=== PATIENT | female | born 1980 | race African-American/Black ===

== ENCOUNTER 2017-06-28 19:03 | Emergency (ER) | payer SELFPAY ==
--- NOTE | 2017-06-28 19:48 | ER Document Report ---
HPI - HPI Pain Level: 5 Notes: Patient is a 36-year-old female who presents the ED complaining of right scapular pain/thoracic back pain status post injury while moving a heavy weight yesterday. She states that she felt a pull in her back and has had pain ever since. Patient states that there is worsening pain when she puts her right arm through range of motion in that area. The pain does not radiate and is described as an ache and occasionally sharp pain. Patient is still able to perform her ADLs without any problems. Denies any headache, fever, head injury , neck pain, URI, sore throat, chest pain, palpitations, syncope, cough, shortness of breath, wheeze, dyspnea, abdominal pain, nausea/vomiting/diarrhea, urinary retention, dysuria, hematuria, loss of control of bowel or bladder, numbness/tingling, saddle anesthesia, muscle paralysis/weakness, or rash. Patient also states that she is on her period, which has been regular, but states that it has been a little bit tax intern than usual. Patient does not take any control pills, nor is she on any control. Patient denies any vaginal odor, bleeding, abdominal pain, pelvic pain. Patient is currently on day 3 of her menstrual period. No other associated concerns or complaints. - ROS Notes: REVIEW OF SYSTEMS: CONSTITUTIONAL : Denies fever, chills, or sweats. Denies recent illness. EENT: Denies eye, ear, throat, or mouth pain or symptoms. Denies nasal or sinus congestion or discharge. Denies throat, tongue, or mouth swelling or difficulty swallowing. CARDIOVASCULAR: Denies chest pain. Denies palpitations or racing or irregular heart beat. Denies ankle edema. RESPIRATORY: Denies cough, cold, or chest congestion. Denies shortness of breath, difficulty breathing, or wheezing. GASTROINTESTINAL: Denies abdominal pain or distention. Denies nausea, vomiting , or diarrhea. Denies blood in vomitus, stools, or per rectum. Denies black, tarry stools. Denies constipation. GENITOURINARY: Denies difficulty urinating, painful urination, burning, frequency, blood in urine, or discharge. FEMALE GENITOURINARY: see hpi MUSCULOSKELETAL: see hpi SKIN: Denies rash, lesions or sores. NEUROLOGICAL: Denies confusion or altered mental status. Denies passing out or loss of consciousness. Denies dizziness or lightheadedness. Denies headache. Denies weakness or paralysis or loss of use of either side. Denies problems with gait or speech. Denies sensory loss, numbness, or tingling. ALL OTHER SYSTEMS REVIEWED AND NEGATIVE. Dictation was performed using [employer] voice recognition software - DERM Skin Color: Normal Past Medical History - Social History Smoking Status: Current Every Day Smoker Family History: Reviewed & Not Pertinent Patient has suicidal ideation: No Patient has homicidal ideation: No Renal/ Medical History: Denies: Hx Peritoneal Dialysis Vertical Provider Document - CONSTITUTIONAL Agree With Documented VS: Yes Notes: PHYSICAL EXAMINATION: GENERAL: Well-appearing, well-nourished and in no acute distress. NECK: Normal range of motion, supple without lymphadenopathy. No rigidity/ meningismus. LUNGS: Breath sounds clear to auscultation bilaterally and equal. No wheezes rales or rhonchi. HEART: Regular rate and rhythm without murmurs, rubs, gallops. ABDOMEN: Soft, nontender, nondistended abdomen. No guarding, no rebound. No masses appreciated. Normal bowel sounds present. No CVA tenderness bilaterally. No pulsatile mass. Musculoskeletal: Ext b/l: FROM to passive/active. Strength 5+/5. No focal deficits noted. Back: No ecchymosis, abrasion, laceration, or obvious deformity/step-off noted. FROM to passive/active. Strength 5+/5. No vertebral point tenderness. + mild tenderness to the rt T-paraspinal mm with trigger points noted. + mild muscle spasming. No other bony tenderness. SLR neg b/l. Extremities: No cyanosis, clubbing, or edema b/l. Peripheral pulses 2+. Capillary refill less than 3 seconds. NEUROLOGICAL: Normal speech, normal gait. Normal sensory, motor exams PSYCH: Normal mood, normal affect. SKIN: Warm, Dry, normal turgor, no rashes or lesions noted. - INFECTION CONTROL TRAVEL OUTSIDE OF THE [place] IN LAST 30 DAYS: No - RESPIRATORY O2 Sat by Pulse Oximetry: 99 Course - Re-evaluation Re-evalutation: 06/28/17 21:05 Patient is an afebrile, well-hydrated, 36-year-old female who presents the ED with right thoracic back pain, suspect inflammatory with muscle spasming, and typical menstrual bleeding without any pain or discomfort. Vitals are stable. PE otherwise unremarkable for any focal neurological deficits. Urine was negative. I will send her home with a prescription for naproxen, Voltaren gel, and baclofen. Conservative measures otherwise for symptoms. Low suspicion for any meningitis, fracture, expanding/ruptured AAA, cauda equina syndrome, epidural mass lesion/abscess, herniated disc causing severe spinal stenosis, ectopic , ovarian torsion, appendicitis, ruptured diverticulitis, sepsis, or other systemic infection at this time. Patient is aware that his condition can change from initial presentation and that he needs monitor symptoms closely for any acute changes. Reviewed case with Dr. Reeder about the [facility] concern. We are in agreement with the urine and referring to [facility] with strict return precautions. No need for further evaluation or work up for asymptomatic menstrual bleeding that is on a regular cycle. Recheck/establish with PCM in 2-3 days. Schedule an appointment with the MANAGER [facility]. Schedule an appointment with the health department if you wish to have STD or other testing. Return to the ED with any worsening/ concerning symptoms otherwise as reviewed in discharge. Patient is in agreement. - Vital Signs Vital signs: Temp Pulse Resp BP Pulse Ox 99.1 F 77 16 128/84 H 99 06/28/17 19:08 06/28/17 19:08 06/28/17 19:08 06/28/17 19:08 06/28/17 19:08 Discharge - Discharge Clinical Impression: Thoracic back pain Qualifiers: Chronicity: acute Back pain laterality: right Qualified Code(s): M54.6 - Pain in thoracic spine Condition: Stable Disposition: HOME, SELF-CARE Instructions: Muscle Relaxers ([facility]), Upper Back Strain ([facility]) Additional Instructions: Rest, Ice, Compression, Elevation Tylenol/ibuprofen as needed Light stretches daily Strength exercises as able Moist heat and massage may help F/u-establish with a PCM in 2-3 days for a recheck Check with the health department if you would like STD testing otherwise Consider consult(s) with Orthopedics/physical therapy for ongoing/worsening symptoms Return to the ED with any worsening symptoms and/or development of fever, headache, chest pain, palpitations, syncope, shortness of breath, trouble breathing, abdominal pain, n/v/d, blood in stool/urine, loss of control of bowel /bladder, urinary retention, muscle weakness/paralysis, saddle anesthesia, numbness/tingling, or other worsening symptoms that are concerning to you. Prescriptions: Baclofen [Baclofen 10 mg Tablet] 5 mg PO BID PRN #10 tablet PRN Reason: Diclofenac Sodium [Voltaren] 4 gm TP QID PRN #100 gel..gm. PRN Reason: Naproxen 500 mg PO BID PRN #60 tablet PRN Reason: Forms: Elevated Blood Pressure, Smoking Cessation Education Referrals: [facility] [Provider Group] - Follow up as needed [facility] [Provider Group] - Follow up as needed [facility] [Provider Group] - [facility] up as [facility] [NO LOCAL MD] - Follow up in 3-5 days [facility] [Provider Group] - 07/01/17
[2017-06-28 21:03] VITALS: BP 121/81
== END 2017-06-28 21:12 | disposition home or self-care (01) ==
LOC: ER 19:03
DX: M54.6 Pain in thoracic spine (principal); M62.830 Muscle spasm of back; X50.0XXA Overexertion from strenuous movement or load, initial encounter; Y93.89 Activity, other specified; Y92.009 Unspecified place in unspecified non-institutional (private) residence as the place of occurrence of the external cause; F17.200 Nicotine dependence, unspecified, uncomplicated; Z32.02 Encounter for pregnancy test, result negative
CPT/HCPCS: 81025; 99283

== ENCOUNTER 2018-01-16 14:33 | Emergency (ER) | payer SELFPAY ==
[2018-01-16] MEDS ORDERED: METHYLPREDNISOLONE INJ 125 MG/2 ML SDV IM ONE (15:04)
--- NOTE | 2018-01-16 15:10 | ER Document Report ---
HPI - HPI Pain Level: 5 Notes: Patient is a 37-year-old female no significant past medical history presents to the ED complaining of a generalized rash 1 week. Patient states that she has had this intermittent rash since June. Patient states that she has itching associated with it. Patient states that the rash will completely go away at times. She has been using [id number] creams with minimal relief. Patient has not been taking any p.o. medications for her symptoms. Patient states that she did move to [place] from [place] and notices recurrence symptoms when she gets out of the shower. She still eating and drinking without any difficulties. She is urinating normally and having normal bowel movements. Patient denies any other travel, new detergents, chemicals, soaps, or insect bites. Denies any other recent illness. Denies any headache, fever, neck pain, URI, sore throat, chest pain, palpitations, syncope, cough, shortness of breath, wheeze, dyspnea, abdominal pain, nausea/vomiting/diarrhea, urinary retention, dysuria, hematuria, loss of control of bowel or bladder, numbness/tingling, saddle anesthesia, muscle paralysis/weakness. - ROS Systems Reviewed and Negative: Yes All other systems reviewed and negative Past Medical History - Social History Smoking Status: Never Smoker Family History: Reviewed & Not Pertinent Pulmonary Medical History: Reports: Hx Asthma Renal/ Medical History: Denies: Hx Peritoneal Dialysis Vertical Provider Document - CONSTITUTIONAL Agree With Documented VS: Yes Notes: PHYSICAL EXAMINATION: GENERAL: Well-appearing, well-nourished and in no acute distress. A&Ox4. Answers questions appropriately. HEAD: Atraumatic, normocephalic. EYES: Pupils equal round and reactive to light, extraocular movements intact, sclera anicteric, conjunctiva are normal. ENT: Nares patent and without discharge. oropharynx clear without exudates. No tonsilar hypertrophy or erythema. Moist mucous membranes. NECK: Normal range of motion, supple without lymphadenopathy LUNGS: Breath sounds clear to auscultation bilaterally and equal. No wheezes rales or rhonchi. HEART: Regular rate and rhythm without murmurs, rubs, gallops. ABDOMEN: Soft, nontender, nondistended abdomen. No guarding, no rebound. No masses appreciated. Normal bowel sounds present. No CVA tenderness bilaterally. Musculoskeletal: FROM to passive/active. Strength 5+/5. Extremities: No cyanosis, clubbing, or edema b/l. Peripheral pulses 2+. Capillary refill less than 3 seconds. NEUROLOGICAL: Cranial nerves grossly intact. Normal speech, normal gait. Normal sensory, motor exams PSYCH: Normal mood, normal affect. SKIN: generalized (trunk/arms/legs) maculopapular rash to the skin. No scabs, burrows, abscess, streaks, or purulence. - INFECTION CONTROL TRAVEL OUTSIDE OF THE U.S. IN LAST 30 DAYS: No - RESPIRATORY O2 Sat by Pulse Oximetry: 99 Course - Re-evaluation Re-evalutation: 01/16/18 15:10 Patient is an afebrile, well-hydrated, 37-year-old female who presents to the ED with a generalized rash skin eruption, suspect dermatitis. Vitals are stable. PE is otherwise unremarkable. No labs or imaging warranted at this time based on H&P. Low suspicion for any excising fasciitis, cellulitis, sepsis , or other systemic emergent condition at this time. Solu-Medrol given IM today. I will send her home with a prescription for and prednisone taper. Conservative measures for symptoms otherwise with close monitoring and documentation of any possible triggers. Recheck with your PCM in 3-5 days. Consider consult with a gps field data collector. Return to the ED with any worsening/ concerning symptoms otherwise as reviewed discharge. Patient is in agreement. - Vital Signs Vital signs: Temp Pulse Resp BP Pulse Ox 98.6 F 78 16 118/75 99 01/16/18 14:44 01/16/18 14:44 01/16/18 14:44 01/16/18 14:44 01/16/18 14:44 Discharge - Discharge Clinical Impression: Rash and nonspecific skin eruption Condition: Stable Disposition: HOME, SELF-CARE Additional Instructions: Keep the skin clean Moisturizers that have no odor or other additives Wash with mild soap and water Tylenol/ibuprofen if needed Take medication as directed Monitor for any worsening symptoms Recheck with your PCM in 3-5 days Consider consult with Dermatology for ongoing/worsening symptoms Return to the ED with any worsening symptoms and/or development of fever, headache, chest pain, palpitations, syncope, shortness of breath, trouble breathing, abdominal pain, n/v/d, abscess, purulent discharge, red streaks, worsening swelling, or other worsening symptoms that are concerning to you. Prescriptions: Prednisone [Deltasone 10 mg Tablet] 10 mg PO ASDIR PRN #21 tablet PRN Reason: Forms: Smoking Cessation Education Referrals: RAEANN BORGES DO [ACTIVE STAFF] - Follow up as needed
[2018-01-16 15:51] VITALS: BP 117/71
== END 2018-01-16 15:49 | disposition home or self-care (01) ==
LOC: ER 14:33
DX: R21 Rash and other nonspecific skin eruption (principal); L29.8 Other pruritus; J45.909 Unspecified asthma, uncomplicated
CPT/HCPCS: 99282; 96372; J2930

== ENCOUNTER 2018-02-10 12:47 | Inpatient (IN) | payer SELFPAY ==
[2018-02-10] MEDS ORDERED: ONDANSETRON 4 MG TAB.RAPDIS PO ONE (13:28)
--- NOTE | 2018-02-10 13:29 | ER Document Report ---
ED Medical Screen (RME) - General Chief Complaint: Vomiting Stated Complaint: VOMITING Time Seen by Provider: 02/10/18 13:28 Notes: Patient complains of chest pain shortness of breath abdominal pain nausea vomiting and frequent urination. TRAVEL OUTSIDE OF THE [place] IN LAST 30 DAYS: No - Related Data Allergies/Adverse Reactions: latex Allergy (Verified 01/16/18 14:57) Penicillins Allergy (Verified 01/16/18 14:57) Past Medical History - Social History Chew tobacco use (# tins/day): No Frequency of alcohol use: Occasional Drug Abuse: None Pulmonary Medical History: Reports: Hx Asthma Renal/ Medical History: Denies: Hx Peritoneal Dialysis Physical Exam - Vital signs Vitals: Temp Pulse Resp BP Pulse Ox 98.4 F 87 16 107/82 99 02/10/18 13:11 02/10/18 13:11 02/10/18 13:11 02/10/18 13:11 02/10/18 13:11 Course - Vital Signs Vital signs: Temp Pulse Resp BP Pulse Ox 98.4 F 87 16 107/82 99 02/10/18 13:11 02/10/18 13:11 02/10/18 13:11 02/10/18 13:11 02/10/18 13:11
[2018-02-10 14:02] LABS: ABSOLUTE BASOPHILS # (AUTO) 0.1 10^3/uL (0.0-0.2); ABSOLUTE EOSINOPHILS # (AUTO) 0.2 10^3/uL (0.0-0.6); ABSOLUTE LYMPHOCYTES (AUTO) 2.6 10^3/uL (0.5-4.7); ABSOLUTE MONOCYTES (AUTO) 0.2 10^3/uL (0.1-1.4); ABSOLUTE NEUT (AUTO) 4.8 10^3/uL (1.7-8.2); BASOPHILS % (AUTO) 1.1 % (0-2); EOSINOPHILS % (AUTO) 2.1 % (0-6); HEMATOCRIT 44.7 % (36.0-47.0); HEMOGLOBIN 15.7 g/dL (12.0-15.5); LYMPHOCYTES % (AUTO) 33.2 % (13-45); MEAN CORPUSCULAR HEMOGLOBIN 32.7 pg (27.0-33.4); MEAN CORPUSCULAR HGB CONC 35.2 g/dL (32.0-36.0); MEAN CORPUSCULAR VOLUME 93 fl (80-97); MONOCYTES % (AUTO) 2.8 % (3-13); PLATELET COUNT 301 10^3/uL (150-450); RED BLOOD COUNT 4.81 10^6/uL (3.72-5.28); RED CELL DISTRIBUTION WIDTH 12.7 % (11.5-14.0); SEGMENTED NEUTROPHILS % (AUTO) 60.8 % (42-78); TOTAL CELLS COUNTED % (AUTO) 100 %
[2018-02-10 14:08] LABS: APPEARANCE,URINE CLEAR; BILIRUBIN,URINE NEGATIVE (NEGATIVE); COLOR,URINE YELLOW; GLUCOSE, URINE >=500 mg/dL (NEGATIVE); KETONES,URINE 80 mg/dL (NEGATIVE); LEUKOCYTE ESTERASE,URINE NEGATIVE (NEGATIVE); NITRITE,URINE NEGATIVE (NEGATIVE); PROTEIN,URINE 100 mg/dL (NEGATIVE); URINE SPECIFIC GRAVITY 1.025; UROBILINOGEN,URINE NEGATIVE mg/dL (<2.0)
[2018-02-10 14:20] LABS: ALANINE AMINOTRANSFERASE 30 U/L (9-52); ALBUMIN 4.9 g/dL (3.5-5.0); ALKALINE PHOSPHATASE 167 U/L (38-126); ASPARTATE AMINO TRANSFERASE 23 U/L (14-36); BILIRUBIN,DIRECT 0.5 mg/dL (0.0-0.4); BILIRUBIN,TOTAL 0.7 mg/dL (0.2-1.3); BLOOD UREA NITROGEN 10 mg/dL (7-20); CALCIUM 9.5 mg/dL (8.4-10.2); CHLORIDE 104 mmol/L (98-107); GLUCOSE 290 mg/dL (75-110); LIPASE 115.5 U/L (23-300); POTASSIUM 4.2 mmol/L (3.6-5.0)
[2018-02-10 14:25] LABS: SODIUM 138.1 mmol/L (137-145)
[2018-02-10 14:27] LABS: ANION GAP 24 (5-19)
[2018-02-10 14:28] LABS: CARBON DIOXIDE 10 mmol/L (22-30)
[2018-02-10] MEDS ORDERED: NORMAL SALINE 1000 ML 1,000 ML IV ONE ×2 (14:33→15:02)
[2018-02-10] MEDS ORDERED: INSULIN REG, HUMAN 100 UNIT/ML 3 ML VIAL (PYX) SUBCUT ONE (14:54)
--- NOTE | 2018-02-10 15:04 | ER Document Report ---
ED General - General Chief Complaint: Vomiting Stated Complaint: VOMITING Time Seen by Provider: 02/10/18 13:28 Mode of Arrival: Ambulatory Information source: Patient Notes: Patient presents complaining of a two-week history of nausea and vomiting with urinary frequency, increased appetite and a 20 pound weight loss. Patient does complain of cough for the past 2 weeks. Patient denies any fever. Patient denies any diarrhea. Patient reports generalized abdominal pain for the past 2 days. Patient states that she does have occasional chest pain when she coughs TRAVEL OUTSIDE OF THE U[place]. IN LAST 30 DAYS: No - HPI Onset: Other - 3 weeks Onset/Duration: Worse Quality of pain: Achy Pain Level: 2 Associated symptoms: Chest pain, Nonproductive cough, Nausea, Vomiting. denies : Chills, Fever, Headache, Sore throat Exacerbated by: Denies Relieved by: Denies Similar symptoms previously: No Recently seen / treated by doctor: Yes - Related Data Allergies/Adverse Reactions: latex Allergy (Verified 01/16/18 14:57) Penicillins Allergy (Verified 01/16/18 14:57) Past Medical History - General Information source: Patient - Social History Smoking Status: Current Every Day Smoker Chew tobacco use (# tins/day): No Frequency of alcohol use: Occasional Drug Abuse: None Occupation: None Lives with: Spouse/Significant other Family History: Reviewed & Not Pertinent Patient has suicidal ideation: No Patient has homicidal ideation: No Pulmonary Medical History: Reports: Hx Asthma Endocrine Medical History: Denies: Hx Diabetes Mellitus Type 1, Hx Diabetes Mellitus Type 2 Renal/ Medical History: Denies: Hx Peritoneal Dialysis Surgical Hx: Negative Review of Systems - Review of Systems Constitutional: Weight loss - 20 pounds over 3 weeks. denies: Fever, Recent illness EENT: No symptoms reported. denies: Throat pain Cardiovascular: Chest pain - With coughing Respiratory: Cough Gastrointestinal: Abdominal pain, Nausea, Vomiting, Poor appetite, Poor fluid intake. denies: Diarrhea Genitourinary: No symptoms reported. denies: Dysuria, Flank pain Female Genitourinary: No symptoms reported. denies: Musculoskeletal: No symptoms reported. denies: Back pain Skin: No symptoms reported Hematologic/Lymphatic: No symptoms reported Neurological/Psychological: No symptoms reported Physical Exam - Vital signs Vitals: Temp Pulse Resp BP Pulse Ox 98.4 F 87 16 107/82 99 02/10/18 13:11 02/10/18 13:11 02/10/18 13:11 02/10/18 13:11 02/10/18 13:11 - General General appearance: Appears well, Alert In distress: None - HEENT Head: Normocephalic, Atraumatic Eyes: Normal Conjunctiva: Normal Nasal: Normal Mouth/Lips: Normal Mucous membranes: Dry Pharynx: Normal Neck: Normal, Supple. No: Lymphadenopathy - Respiratory Respiratory status: No respiratory distress Chest status: Nontender - Cardiovascular Rhythm: Regular Heart sounds: S1 appreciated, S2 appreciated Murmur: No - Abdominal Inspection: Normal Distension: No distension Bowel sounds: Normal Tenderness: Tender - diffuse abd tenderness Organomegaly: No organomegaly - Back Back: Normal, Nontender. No: CVA tenderness - Extremities General upper extremity: Normal inspection, Normal strength General lower extremity: Normal inspection, Normal strength - Neurological Neuro grossly intact: Yes Cognition: Normal Casper Coma Scale Eye Opening: Spontaneous Merlene Coma Scale Verbal: Oriented Casper Coma Scale Motor: Obeys Commands Casper Coma Scale Total: 15 - Psychological Associated symptoms: Normal affect, Normal mood - Skin Skin Temperature: Warm Skin Moisture: Dry Skin Color: Normal Course - Re-evaluation Re-evalutation: 02/10/18 16:04 Patient presents with findings concerning for DKA due to new onset diabetes. Consulted with Dr. Vasques who recommends starting insulin drip at 2 units an hour and consulting hospitalist for admission. Consulted with dr Paiz who agrees to accept pt for admission to [facility] - Vital Signs Vital signs: Temp Pulse Resp BP Pulse Ox 98.4 F 75 20 105/72 100 02/10/18 18:54 02/10/18 18:54 02/10/18 18:54 02/10/18 18:54 02/10/18 18:54 - Laboratory Result Diagrams: 02/10/18 13:44 02/10/18 18:15 Laboratory results interpreted by me: 02/10/18 02/10/18 02/10/18 13:30 13:44 13:44 Hgb 15.7 H Monocytes % 2.8 L VBG pH VBG pCO2 VBG HCO3 Carbon Dioxide 10 L* Anion Gap 24 H Glucose 290 H Hemoglobin A1c % Direct Bilirubin 0.5 H Alkaline Phosphatase 167 H Urine Protein 100 H Urine Glucose (UA) >=500 H Urine Ketones 80 H Urine Blood SMALL H 02/10/18 02/10/18 13:44 13:44 Hgb Monocytes % VBG pH 7.17 L* VBG pCO2 29.7 L VBG HCO3 10.5 L Carbon Dioxide Anion Gap Glucose Hemoglobin A1c % 11.8 H Direct Bilirubin Alkaline Phosphatase Urine Protein Urine Glucose (UA) Urine Ketones Urine Blood Discharge - Discharge Clinical Impression: DKA (diabetic ketoacidoses) Qualifiers: Diabetes mellitus type: type 1 Diabetes mellitus complication detail: without coma Qualified Code(s): E10.10 - Type 1 diabetes mellitus with ketoacidosis without coma Condition: Stable Disposition: ADMITTED INPATIENT Admitting Provider: Hospitalist Unit Admitted: [facility]
[2018-02-10 15:22] LABS: VENOUS BLOOD BASE EXCESS -16.7 mmol/L; VENOUS BLOOD HCO3 10.5 mmol/L (20-32); VENOUS BLOOD PCO2 29.7 mmHg (35-63)
--- NOTE | 2018-02-10 15:47 | RADIOLOGY REPORT (SQ) ---
EXAM DESCRIPTION: CHEST 2 VIEWS COMPLETED DATE/TIME: 02/10/2018 3:22 pm REASON FOR STUDY: cough COMPARISON: None. EXAM PARAMETERS: NUMBER OF VIEWS: two views TECHNIQUE: Digital Frontal and Lateral radiographic views of the chest acquired. RADIATION DOSE: NA LIMITATIONS: none FINDINGS: LUNGS AND PLEURA: No opacities, masses or pneumothorax. No pleural effusion. MEDIASTINUM AND HILAR STRUCTURES: No masses or contour abnormalities. HEART AND VASCULAR STRUCTURES: Heart normal size. No evidence for failure. BONES: No acute findings. HARDWARE: None in the chest. OTHER: No other significant finding. IMPRESSION: NO ACUTE RADIOGRAPHIC FINDING IN THE CHEST. TECHNICAL DOCUMENTATION: JOB ID: [id number] [employer]- All Rights Reserved Reading location - IP/workstation name: [facility]
[2018-02-10 15:48] LABS: VENOUS BLOOD PH 7.17 (7.30-7.42)
[2018-02-10] MEDS ORDERED: NORMAL SALINE 100 ML with INSULIN REGULAR, HUMAN 100 UNIT IV PRN ×4 (16:02→16:15)
[2018-02-10] MEDS ORDERED: POTASSI CL 20 MEQ/NS 1L 1,000 ML IV PRN (16:08)
[2018-02-10] MEDS ORDERED: ACETAMINOPHEN 325 MG TABLET PO PRN (16:08)
[2018-02-10] MEDS ORDERED: ONDANSETRON HCL INJ/PF 4 MG/2 ML SDV IV PRN (16:08)
[2018-02-10] MEDS ORDERED: OXYCODONE-ACETAMINOPHEN 5-325 MG TABLET PO PRN (16:08)
[2018-02-10] MEDS ORDERED: DEXTROSE 40% GEL 15 GM TUBE PO PRN ×3 (16:15→20:10)
[2018-02-10] MEDS ORDERED: DEXTROSE 50%-WATER 25 GM/50 ML DISP.SYRIN IV PRN ×2 (16:15)
[2018-02-10] MEDS ORDERED: GLUCAGON,HUMAN RECOMB 1 MG INJ IM PRN ×2 (16:15→20:10)
[2018-02-10] MEDS: NORMAL SALINE 1000 ML 1,000 ML IV PRN ×2 (16:17→21:11)
--- NOTE | 2018-02-10 16:57 | PDOC H&P ---
History of Present Illness Admission Date/PCP: February 10, 2018 No PCP Patient complains of: Stomach pain worse for a couple of days History of Present Illness: PENNY PERSON is a 37 year old female presented to ED accompanied by significant other and complains of stomach pain, nausea and vomiting which had been getting progressively worse since mid- January. She came to ED because her skin was itchy, dry and was having cramps of her hands. She was prescribed prednisone. Symptoms got worse. Claims losing around 20 pounds since mid January. Complains of being thirsty and urinating a lot. When evaluated in ED patient was found with hyperglycemia and acidosis. She was started on insulin IV and administered IV fluids. Hospitalist service was consulted and prompted to admit for further management. Past Medical History Cardiac Medical History: Reports: None Pulmonary Medical History: Reports: Asthma EENT Medical History: Reports: None Neurological Medical History: Reports: None Endocrine Medical History: Reports: None Renal/ Medical History: Reports: None Malignancy Medical History: Reports: None GI Medical History: Reports: None Musculoskeltal Medical History: Reports: None Skin Medical History: Reports: None Psychiatric Medical History: Reports: None Traumatic Medical History: Reports: None Hematology: Reports: None Infectious Medical History: Reports: None Past Surgical History Past Surgical History: Reports: None Social History Smoking Status: Current Every Day Smoker Cigarettes Packs Per Day: 1 Hx Recreational Drug Use: No Drugs: None Hx Prescription Drug Abuse: No Family History Family History: Reviewed & Not Pertinent Parental Family History Reviewed: Yes Children Family History Reviewed: Yes Sibling(s) Family History Reviewed.: Yes Medication/Allergy Allergies/Adverse Reactions: latex Allergy (Verified 01/16/18 14:57) Penicillins Allergy (Verified 01/16/18 14:57) Review of Systems Constitutional: PRESENT: chills, fatigue, weakness. ABSENT: night sweats Eyes: PRESENT: visual disturbances Ears: ABSENT: hearing changes Nose, Mouth, and Throat: ABSENT: headache(s), mouth pain, sore throat Cardiovascular: ABSENT: chest pain, dyspnea on exertion, edema Respiratory: PRESENT: cough Gastrointestinal: PRESENT: abdominal pain, nausea, vomiting Genitourinary: ABSENT: difficulty urinating, dysuria Musculoskeletal: ABSENT: back pain Integumentary: PRESENT: other - dry skin and itchiness Neurological: PRESENT: paresthesias Endocrine: PRESENT: polydipsia, polyuria Hematologic/Lymphatic: ABSENT: lymphadenopathy Physical Exam Vital Signs: Temp Pulse Resp BP Pulse Ox 98.4 F 87 16 107/82 99 02/10/18 13:11 02/10/18 13:11 02/10/18 13:11 02/10/18 13:11 02/10/18 13:11 Intake & Output 02/09/18 02/10/18 02/11/18 06:59 06:59 06:59 Weight 61 kg General appearance: PRESENT: no acute distress, cooperative, thin Head exam: PRESENT: atraumatic, normocephalic Eye exam: PRESENT: conjunctiva pink, EOMI, PERRLA Ear exam: PRESENT: normal external ear exam Mouth exam: PRESENT: moist Teeth exam: PRESENT: poor dentation Neck exam: PRESENT: full ROM. ABSENT: JVD, lymphadenopathy, tenderness Respiratory exam: PRESENT: clear to auscultation donald Cardiovascular exam: PRESENT: diastolic murmur, RRR. ABSENT: systolic murmur Vascular exam: PRESENT: normal capillary refill GI/Abdominal exam: PRESENT: normal bowel sounds, soft, tenderness Extremities exam: PRESENT: full ROM. ABSENT: pedal edema Musculoskeletal exam: PRESENT: ambulatory Neurological exam: PRESENT: alert, awake, oriented to person, oriented to place , oriented to time, oriented to situation, CN II-XII grossly intact Psychiatric exam: PRESENT: appropriate affect, normal mood Skin exam: PRESENT: intact, normal color Results Laboratory Results: 02/10/18 13:44 02/10/18 13:44 02/10/18 02/10/18 02/10/18 13:30 13:44 13:44 WBC 8.0 RBC 4.81 Hgb 15.7 H Hct 44.7 MCV 93 MCH 32.7 MCHC 35.2 RDW 12.7 Plt Count 301 Seg Neutrophils % 60.8 Lymphocytes % 33.2 Monocytes % 2.8 L Eosinophils % 2.1 Basophils % 1.1 Absolute Neutrophils 4.8 Absolute Lymphocytes 2.6 Absolute Monocytes 0.2 Absolute Eosinophils 0.2 Absolute Basophils 0.1 VBG pH VBG pCO2 VBG HCO3 VBG Base Excess Sodium 138.1 Potassium 4.2 Chloride 104 Carbon Dioxide 10 L* Anion Gap 24 H BUN 10 Creatinine 0.90 Est GFR ( Amer) > 60 Est GFR (Non-Af Amer) > 60 Glucose 290 H Calcium 9.5 Total Bilirubin 0.7 AST 23 ALT 30 Alkaline Phosphatase 167 H Total Protein 8.0 Albumin 4.9 Lipase 115.5 Urine Color YELLOW Urine Appearance CLEAR Urine pH 5.0 Ur Specific Wat[place] 1.025 Urine Protein 100 H Urine Glucose (UA) >=500 H Urine Ketones 80 H Urine Blood SMALL H Urine Nitrite NEGATIVE Ur Leukocyte Esterase NEGATIVE Urine WBC (Auto) 1 Urine RBC (Auto) 0 02/10/18 13:44 WBC RBC Hgb Hct MCV MCH MCHC RDW Plt Count Seg Neutrophils % Lymphocytes % Monocytes % Eosinophils % Basophils % Absolute Neutrophils Absolute Lymphocytes Absolute Monocytes Absolute Eosinophils Absolute Basophils VBG pH 7.17 L* VBG pCO2 29.7 L VBG HCO3 10.5 L VBG Base Excess -16.7 Sodium Potassium Chloride Carbon Dioxide Anion Gap BUN Creatinine Est GFR ( Amer) Est GFR (Non-Af Amer) Glucose Calcium Total Bilirubin AST ALT Alkaline Phosphatase Total Protein Albumin Lipase Urine Color Urine Appearance Urine pH Ur Specific [place] Urine Protein Urine Glucose (UA) Urine Ketones Urine Blood Urine Nitrite Ur Leukocyte Esterase Urine WBC (Auto) Urine RBC (Auto) Impressions: Chest X-Ray 02/10/18 15:03 IMPRESSION: NO ACUTE RADIOGRAPHIC FINDING IN THE CHEST. Assessment & Plan - Diagnosis (1) DKA (diabetic ketoacidoses) Qualifiers: Diabetes mellitus type: type 1 Diabetes mellitus complication detail: without coma Qualified Code(s): E10.10 - Type 1 diabetes mellitus with ketoacidosis without coma Is this a current diagnosis for this admission?: Yes Plan: Patient will be placed on insulin drip and fluids. Trend BMP every 2 hours. Lytes will be replaced as needed (2) Tobacco abuse Is this a current diagnosis for this admission?: Yes Plan: Educated about quitting and adverse reactions. To place on nicotine patch. - Time Time Spent: 30 to 50 Minutes Medications reviewed and adjusted accordingly: Yes Anticipated discharge: Home Within: within 48 hours - Inpatient Certification Based on my medical assessment, after consideration of the patient's comorbidities, presenting symptoms, or acuity I expect that the services needed warrant INPATIENT care.: Yes I certify that my determination is in accordance with my understanding of Medicare's requirements for reasonable and necessary INPATIENT services [42 CFR 412.3e].: Yes Medical Necessity: Need Close Monitoring Due to Risk of Patient Decompensation, Need For IV Fluids
[2018-02-10] MEDS ORDERED: POTASSI CL 40 MEQ/D5-1/2NS 1L 40 MEQ/1,000 ML RTUINJ IV PRN (18:02)
[2018-02-10 18:49] LABS: BLOOD UREA NITROGEN 9 mg/dL (7-20); CALCIUM 8.1 mg/dL (8.4-10.2); CHLORIDE 114 mmol/L (98-107); GLUCOSE 163 mg/dL (75-110); POTASSIUM 4.2 mmol/L (3.6-5.0); SODIUM 139.9 mmol/L (137-145)
[2018-02-10 18:55] LABS: ANION GAP 17 (5-19)
[2018-02-10 18:58] LABS: CARBON DIOXIDE 9 mmol/L (22-30)
[2018-02-10] MEDS ORDERED: DEXTROSE 40% GEL 15 GM TUBE X 2 PO PRN (20:10)
[2018-02-10] MEDS ORDERED: DEXTROSE 50%-WATER SYRINGE 25 GM/50 ML DOSE IV PRN (20:10)
[2018-02-10] MEDS ORDERED: DEXTROSE 50%-WATER SYRINGE 12.5 GM/25 ML DOSE IV PRN (20:10)
[2018-02-10] MEDS ORDERED: INSULIN LISPRO 100 UNIT/ML 3 ML VIAL SUBCUT PRN (20:10)
[2018-02-10] MEDS ORDERED: NICOTINE 21 MG/24 HR PATCH.TD24 TD ONE (21:00)
[2018-02-10 22:45] LABS: ANION GAP 11 (5-19); BLOOD UREA NITROGEN 8 mg/dL (7-20); CALCIUM 8.1 mg/dL (8.4-10.2); CARBON DIOXIDE 12 mmol/L (22-30); CHLORIDE 113 mmol/L (98-107); GLUCOSE 253 mg/dL (75-110); POTASSIUM 4.3 mmol/L (3.6-5.0); SODIUM 136.1 mmol/L (137-145)
[2018-02-10] MEDS: HEPARIN SOD (PORCINE) 5,000 UNIT/ML 1 ML SYRINGE SUBCUT SCH (22:45)
[2018-02-10] MEDS: ZOLPIDEM TARTRATE 5 MG TABLET PO PRN (22:47)
[2018-02-11] MEDS: RINGERS SOLUTION,LACTATED 1,000 ML IV PRN ×3 (05:44→22:38)
[2018-02-11] MEDS: HEPARIN SOD (PORCINE) 5,000 UNIT/ML 1 ML SYRINGE SUBCUT SCH ×3 (06:01→22:38)
[2018-02-11 06:54] LABS: ABSOLUTE EOSINOPHILS # (AUTO) 0.2 10^3/uL (0.0-0.6); ABSOLUTE LYMPHOCYTES (AUTO) 2.9 10^3/uL (0.5-4.7); ABSOLUTE MONOCYTES (AUTO) 0.3 10^3/uL (0.1-1.4); ABSOLUTE NEUT (AUTO) 3.6 10^3/uL (1.7-8.2); BASOPHILS % (AUTO) 0.7 % (0-2); EOSINOPHILS % (AUTO) 2.6 % (0-6); HEMATOCRIT 33.2 % (36.0-47.0); LYMPHOCYTES % (AUTO) 41.1 % (13-45); MEAN CORPUSCULAR HEMOGLOBIN 32.5 pg (27.0-33.4); MEAN CORPUSCULAR HGB CONC 34.9 g/dL (32.0-36.0); MEAN CORPUSCULAR VOLUME 93 fl (80-97); MONOCYTES % (AUTO) 4.5 % (3-13); PLATELET COUNT 169 10^3/uL (150-450); RED BLOOD COUNT 3.56 10^6/uL (3.72-5.28); RED CELL DISTRIBUTION WIDTH 12.5 % (11.5-14.0); SEGMENTED NEUTROPHILS % (AUTO) 51.1 % (42-78); TOTAL CELLS COUNTED % (AUTO) 100 %
[2018-02-11 06:55] LABS: HEMOGLOBIN 11.6 g/dL (12.0-15.5)
[2018-02-11 07:14] LABS: ANION GAP 10 (5-19); BLOOD UREA NITROGEN 6 mg/dL (7-20); CALCIUM 8.2 mg/dL (8.4-10.2); CARBON DIOXIDE 13 mmol/L (22-30); CHLORIDE 115 mmol/L (98-107); GLUCOSE 127 mg/dL (75-110); SODIUM 137.5 mmol/L (137-145)
[2018-02-11] MEDS: NICOTINE 21 MG/24 HR PATCH.TD24 TD SCH (10:06)
[2018-02-11] MEDS ORDERED: DEXTROSE 40% GEL 15 GM TUBE PO PRN ×2 (11:37)
[2018-02-11] MEDS ORDERED: GLUCAGON,HUMAN RECOMB 1 MG INJ IM PRN (11:37)
[2018-02-11] MEDS ORDERED: DEXTROSE 50%-WATER 25 GM/50 ML DISP.SYRIN IV PRN ×2 (11:37)
[2018-02-11] MEDS ORDERED: INSULIN GLARGINE,HUM.REC.ANLOG 1,000 UNIT/10 ML UNIT SUBCUT ONE (11:40)
[2018-02-11] MEDS: INSULIN LISPRO 100 UNIT/ML 3 ML VIAL SUBCUT PRN ×2 (12:10→22:38)
[2018-02-11] MEDS ORDERED: INSULIN LISPRO 100 UNIT/ML 3 ML VIAL SUBCUT ONE (13:00)
[2018-02-11] MEDS ORDERED: INSULIN LISPRO 100 UNIT/ML 3 ML VIAL SUBCUT SCH (16:00)
[2018-02-11 17:06] LABS: ANION GAP 14 (5-19); BLOOD UREA NITROGEN 6 mg/dL (7-20); CALCIUM 8.8 mg/dL (8.4-10.2); CARBON DIOXIDE 14 mmol/L (22-30); CHLORIDE 111 mmol/L (98-107); GLUCOSE 91 mg/dL (75-110); POTASSIUM 3.8 mmol/L (3.6-5.0); SODIUM 139.3 mmol/L (137-145)
--- NOTE | 2018-02-11 17:24 | PDOC PROGRESS REPORT ---
Subjective Progress Note for:: 02/11/18 Subjective:: She reports that feels better with hydration. She still in shock about the whole thing about the diagnosis of diabetes. Nurse reports that insulin drip was never started when she was in emergency room. It appears that there was a miscommunication and she is and currently only getting sliding scale. Patient also appears motivated to quit smoking. Discussed with nurse management of insulin on this patient Review of system All organ systems evaluated and negative except as in subjective All significant diagnostics and laboratories have been reviewed Reason For Visit: DIABETIC KETOACIDOSIS Physical Exam Vital Signs: Temp Pulse Resp BP Pulse Ox 97.8 F 78 16 97/58 L 100 02/11/18 07:56 02/11/18 07:56 02/11/18 07:56 02/11/18 07:56 02/11/18 07:56 Intake & Output 02/10/18 02/11/18 02/12/18 06:59 06:59 06:59 Intake Total 2350 Output Total 700 Balance 1650 Weight 66 kg General appearance: PRESENT: no acute distress, cooperative, thin Head exam: PRESENT: atraumatic, normocephalic Eye exam: PRESENT: conjunctiva pink, EOMI, PERRLA Ear exam: PRESENT: normal external ear exam Mouth exam: PRESENT: moist Neck exam: PRESENT: full ROM. ABSENT: JVD, lymphadenopathy, tenderness Respiratory exam: PRESENT: clear to auscultation donald Cardiovascular exam: PRESENT: RRR. ABSENT: diastolic murmur, systolic murmur Vascular exam: PRESENT: normal capillary refill GI/Abdominal exam: PRESENT: normal bowel sounds, soft. ABSENT: tenderness Extremities exam: PRESENT: full ROM. ABSENT: pedal edema Musculoskeletal exam: PRESENT: ambulatory Neurological exam: PRESENT: alert, awake, oriented to person, oriented to place , oriented to time, oriented to situation, CN II-XII grossly intact Psychiatric exam: PRESENT: appropriate affect, normal mood Skin exam: PRESENT: intact, normal color Results Laboratory Results: 02/11/18 05:54 02/11/18 05:54 02/10/18 02/10/18 02/11/18 18:15 22:13 05:54 WBC 7.0 RBC 3.56 L Hgb 11.6 L D Hct 33.2 L MCV 93 MCH 32.5 MCHC 34.9 RDW 12.5 Plt Count 169 Seg Neutrophils % 51.1 Lymphocytes % 41.1 Monocytes % 4.5 Eosinophils % 2.6 Basophils % 0.7 Absolute Neutrophils 3.6 Absolute Lymphocytes 2.9 Absolute Monocytes 0.3 Absolute Eosinophils 0.2 Absolute Basophils 0.0 Sodium 139.9 136.1 L Potassium 4.2 4.3 Chloride 114 H 113 H Carbon Dioxide 9 L* 12 L Anion Gap 17 11 BUN 9 8 Creatinine 0.68 0.65 Est GFR ( Amer) > 60 > 60 Est GFR (Non-Af Amer) > 60 > 60 Glucose 163 H 253 H Calcium 8.1 L 8.1 L Magnesium 02/11/18 05:54 WBC RBC Hgb Hct MCV MCH MCHC RDW Plt Count Seg Neutrophils % Lymphocytes % Monocytes % Eosinophils % Basophils % Absolute Neutrophils Absolute Lymphocytes Absolute Monocytes Absolute Eosinophils Absolute Basophils Sodium 137.5 Potassium 4.0 Chloride 115 H Carbon Dioxide 13 L Anion Gap 10 BUN 6 L Creatinine 0.62 Est GFR ( Amer) > 60 Est GFR (Non-Af Amer) > 60 Glucose 127 H Calcium 8.2 L Magnesium 1.9 Impressions: Chest X-Ray 02/10/18 15:03 IMPRESSION: NO ACUTE RADIOGRAPHIC FINDING IN THE CHEST. Assessment & Plan - Diagnosis (1) DKA (diabetic ketoacidoses) Qualifiers: Diabetes mellitus type: type 1 Diabetes mellitus complication detail: without coma Qualified Code(s): E10.10 - Type 1 diabetes mellitus with ketoacidosis without coma Is this a current diagnosis for this admission?: Yes Plan: Will continue Lantus. Will place on Humalog sliding scale. Will hold off for now pre-meal Humalog out of concern of hypoglycemia. Will continue IV fluids. To trend BMP (2) Tobacco abuse Is this a current diagnosis for this admission?: Yes Plan: Educated about quitting and adverse reactions. Continue nicotine patch. - Time Time Spent with patient: 15-24 minutes Anticipated discharge: Home Within: within 48 hours - Inpatient Certification Based on my medical assessment, after consideration of the patient's comorbidities, presenting symptoms, or acuity I expect that the services needed warrant INPATIENT care.: Yes I certify that my determination is in accordance with my understanding of Medicare's requirements for reasonable and necessary INPATIENT services [42 CFR 412.3e].: Yes Medical Necessity: Significant Comorbidiites Make Outpatient Treatment Too Risky , Need Close Monitoring Due to Risk of Patient Decompensation, Need For IV Fluids
[2018-02-11] MEDS: ZOLPIDEM TARTRATE 5 MG TABLET PO PRN (23:01)
[2018-02-12] MEDS: RINGERS SOLUTION,LACTATED 1,000 ML IV PRN (04:47)
[2018-02-12] MEDS: HEPARIN SOD (PORCINE) 5,000 UNIT/ML 1 ML SYRINGE SUBCUT SCH ×3 (06:06→21:58)
[2018-02-12 06:10] LABS: ABSOLUTE BASOPHILS # (AUTO) 0.1 10^3/uL (0.0-0.2); ABSOLUTE EOSINOPHILS # (AUTO) 0.2 10^3/uL (0.0-0.6); ABSOLUTE LYMPHOCYTES (AUTO) 3.3 10^3/uL (0.5-4.7); ABSOLUTE MONOCYTES (AUTO) 0.2 10^3/uL (0.1-1.4); BASOPHILS % (AUTO) 1.1 % (0-2); EOSINOPHILS % (AUTO) 2.8 % (0-6); HEMATOCRIT 32.9 % (36.0-47.0); HEMOGLOBIN 11.5 g/dL (12.0-15.5); LYMPHOCYTES % (AUTO) 57.4 % (13-45); MEAN CORPUSCULAR HEMOGLOBIN 32.3 pg (27.0-33.4); MEAN CORPUSCULAR VOLUME 92 fl (80-97); MONOCYTES % (AUTO) 4.3 % (3-13); PLATELET COUNT 163 10^3/uL (150-450); RED BLOOD COUNT 3.57 10^6/uL (3.72-5.28); RED CELL DISTRIBUTION WIDTH 12.7 % (11.5-14.0); SEGMENTED NEUTROPHILS % (AUTO) 34.4 % (42-78); TOTAL CELLS COUNTED % (AUTO) 100 %; WHITE BLOOD COUNT 5.7 10^3/uL (4.0-10.5)
[2018-02-12 06:37] LABS: ANION GAP 11 (5-19); BLOOD UREA NITROGEN 6 mg/dL (7-20); CALCIUM 8.5 mg/dL (8.4-10.2); CARBON DIOXIDE 18 mmol/L (22-30); CHLORIDE 115 mmol/L (98-107); GLUCOSE 66 mg/dL (75-110); POTASSIUM 3.5 mmol/L (3.6-5.0); SODIUM 144.3 mmol/L (137-145)
--- NOTE | 2018-02-12 07:33 | EKG REPORT ---
SEVERITY:- OTHERWISE NORMAL ECG - SINUS RHYTHM ATRIAL PREMATURE COMPLEX : Confirmed by: Leno Chang MD 12-Feb-2018 07:31:43
[2018-02-12] MEDS ORDERED: INSULIN GLARGINE,HUM.REC.ANLOG 300 UNIT/3 ML INSULN.PEN SUBCUT SCH ×2 (10:00→10:22)
[2018-02-12] MEDS: NICOTINE 21 MG/24 HR PATCH.TD24 TD SCH (10:05)
[2018-02-12] MEDS ORDERED: POTASSIUM CHLORIDE 10 MEQ TABLET.SA PO ONE (11:00)
[2018-02-12] MEDS: INSULIN LISPRO 100 UNIT/ML 3 ML VIAL SUBCUT SCH ×2 (11:58→17:19)
[2018-02-12] MEDS: INSULIN LISPRO 100 UNIT/ML 3 ML VIAL SUBCUT PRN ×2 (11:58→17:19)
[2018-02-12] MEDS ORDERED: BENZONATATE 100 MG CAPSULE PO PRN (12:21)
[2018-02-12] MEDS: RINGERS SOLUTION,LACTATED 1,000 ML with POTASSIUM CHLORIDE 40 MEQ IV PRN ×4 (12:25→21:59)
[2018-02-12] MEDS ORDERED: ALPRAZOLAM 0.25 MG TABLET PO ONE (13:00)
[2018-02-12] MEDS ORDERED: POLYETHYLENE GLYCOL 3350 POWDER 17 GM/1 PACKET PO ONE (13:00)
[2018-02-12] MEDS ORDERED: LACTULOSE SYRUP 20 GM/30 ML UDCUP PO ONE (13:00)
[2018-02-12] MEDS ORDERED: VENLAFAXINE HCL 37.5 MG CAP.SR.24H PO ONE (13:30)
--- NOTE | 2018-02-12 18:23 | PDOC PROGRESS REPORT ---
Subjective Progress Note for:: 02/12/18 Subjective:: She reports cough. Nurse relates that patient had been constipated for 5 days and may need medication for anxiety Review of system All organ systems evaluated and negative except as in subjective All significant diagnostics and laboratories have been reviewed Reason For Visit: DIABETIC KETOACIDOSIS Physical Exam Vital Signs: Temp Pulse Resp BP Pulse Ox 98.3 F 78 16 105/65 100 02/12/18 07:59 02/12/18 07:59 02/12/18 07:59 02/12/18 07:59 02/12/18 07:59 Intake & Output 02/11/18 02/12/18 02/13/18 06:59 06:59 06:59 Intake Total 2350 4279 240 Output Total 077 508 6444 Balance 8518 9739 -7200 Weight 66 kg 70 kg Results Laboratory Results: 02/12/18 05:56 02/12/18 05:56 02/11/18 02/11/18 02/12/18 05:54 16:25 05:56 WBC 5.7 RBC 3.57 L Hgb 11.5 L Hct 32.9 L MCV 92 MCH 32.3 MCHC 35.0 RDW 12.7 Plt Count 163 Seg Neutrophils % 34.4 L Lymphocytes % 57.4 H Monocytes % 4.3 Eosinophils % 2.8 Basophils % 1.1 Absolute Neutrophils 2.0 Absolute Lymphocytes 3.3 Absolute Monocytes 0.2 Absolute Eosinophils 0.2 Absolute Basophils 0.1 Sodium 139.3 Potassium 3.8 Chloride 111 H Carbon Dioxide 14 L Anion Gap 14 BUN 6 L Creatinine 0.83 Est GFR ( Amer) > 60 Est GFR (Non-Af Amer) > 60 Glucose 91 Calcium 8.8 Magnesium TSH 1.51 02/12/18 05:56 WBC RBC Hgb Hct MCV MCH MCHC RDW Plt Count Seg Neutrophils % Lymphocytes % Monocytes % Eosinophils % Basophils % Absolute Neutrophils Absolute Lymphocytes Absolute Monocytes Absolute Eosinophils Absolute Basophils Sodium 144.3 Potassium 3.5 L Chloride 115 H Carbon Dioxide 18 L Anion Gap 11 BUN 6 L Creatinine 0.60 Est GFR ( Amer) > 60 Est GFR (Non-Af Amer) > 60 Glucose 66 L Calcium 8.5 Magnesium 1.9 TSH Impressions: Chest X-Ray 02/10/18 15:03 IMPRESSION: NO ACUTE RADIOGRAPHIC FINDING IN THE CHEST. Assessment & Plan - Diagnosis (1) DKA (diabetic ketoacidoses) Qualifiers: Diabetes mellitus type: type 1 Diabetes mellitus complication detail: without coma Qualified Code(s): E10.10 - Type 1 diabetes mellitus with ketoacidosis without coma Is this a current diagnosis for this admission?: Yes Plan: decrease Lantus. Pre-meal Humalog and continue insulin sliding scale. Continue IV fluids for now and trend BMP (2) Tobacco abuse Is this a current diagnosis for this admission?: Yes Plan: Educated about quitting and adverse reactions. Continue nicotine patch. Effexor to control anxiety likely due to nicotine withdrawal. Will order a one- time dose of Xanax. (3) Constipation Qualifiers: Constipation type: unspecified constipation type Qualified Code(s): K59.00 - Constipation, unspecified Is this a current diagnosis for this admission?: Yes Plan: Bowel regimen - Time Time Spent with patient: 15-24 minutes Medications reviewed and adjusted accordingly: Yes Anticipated discharge: Home Within: within 48 hours - Inpatient Certification Based on my medical assessment, after consideration of the patient's comorbidities, presenting symptoms, or acuity I expect that the services needed warrant INPATIENT care.: Yes I certify that my determination is in accordance with my understanding of Medicare's requirements for reasonable and necessary INPATIENT services [42 CFR 412.3e].: Yes Medical Necessity: Need Close Monitoring Due to Risk of Patient Decompensation, Need For IV Fluids
[2018-02-12] MEDS: POLYETHYLENE GLYCOL 3350 POWDER 17 GM/1 PACKET PO SCH (21:59)
[2018-02-12] MEDS ORDERED: QUETIAPINE FUMARATE 25 MG TABLET PO SCH (22:00)
[2018-02-12] MEDS: LACTULOSE SYRUP 20 GM/30 ML UDCUP PO SCH (22:00)
[2018-02-13 05:11] LABS: HEMATOCRIT 28.9 % (36.0-47.0); HEMOGLOBIN 10.2 g/dL (12.0-15.5); MEAN CORPUSCULAR HEMOGLOBIN 32.8 pg (27.0-33.4); MEAN CORPUSCULAR HGB CONC 35.3 g/dL (32.0-36.0); MEAN CORPUSCULAR VOLUME 93 fl (80-97); PLATELET COUNT 151 10^3/uL (150-450); RED BLOOD COUNT 3.11 10^6/uL (3.72-5.28); RED CELL DISTRIBUTION WIDTH 12.7 % (11.5-14.0); WHITE BLOOD COUNT 5.1 10^3/uL (4.0-10.5)
[2018-02-13 05:37] LABS: ABSOLUTE LYMPHOCYTES# (MANUAL) 3.5 10^3/uL (0.5-4.7); ABSOLUTE MONOCYTES # (MANUAL) 0.3 10^3/uL (0.1-1.4); ABSOLUTE NEUTROPHILS# (MANUAL) 1.2 10^3/uL (1.7-8.2); BASOPHILS % (MANUAL) 0 % (0-2); EOSINOPHILS % (MANUAL) 2 % (0-6); LYMPHOCYTES % (MANUAL) 68 % (13-45); MONOCYTES % (MANUAL) 5 % (3-13); SEGMENTED NEUTROPHILS % (MAN) 24 % (42-78); TOTAL CELLS COUNTED 100
[2018-02-13 05:39] LABS: ANION GAP 7 (5-19); BLOOD UREA NITROGEN 4 mg/dL (7-20); CALCIUM 8.3 mg/dL (8.4-10.2); CARBON DIOXIDE 22 mmol/L (22-30); CHLORIDE 114 mmol/L (98-107); GLUCOSE 139 mg/dL (75-110); SODIUM 142.8 mmol/L (137-145)
[2018-02-13 05:40] LABS: PLATELET COMMENT ADEQUATE; RBC MORPHOLOGY COMMENT NORMO-CYTIC/CHROMIC
[2018-02-13 05:44] LABS: POTASSIUM 3.9 mmol/L (3.6-5.0)
[2018-02-13] MEDS: HEPARIN SOD (PORCINE) 5,000 UNIT/ML 1 ML SYRINGE SUBCUT SCH (06:52)
[2018-02-13] MEDS: INSULIN LISPRO 100 UNIT/ML 3 ML VIAL SUBCUT SCH (09:13)
[2018-02-13] MEDS: NICOTINE 21 MG/24 HR PATCH.TD24 TD SCH (09:14)
[2018-02-13] MEDS: POLYETHYLENE GLYCOL 3350 POWDER 17 GM/1 PACKET PO SCH (09:20)
[2018-02-13] MEDS: LACTULOSE SYRUP 20 GM/30 ML UDCUP PO SCH (09:20)
[2018-02-13] MEDS ORDERED: VENLAFAXINE HCL 37.5 MG CAP.SR.24H PO SCH (10:00)
[2018-02-13] MEDS ORDERED: INSULIN GLARGINE,HUM.REC.ANLOG 300 UNIT/3 ML INSULN.PEN SUBCUT SCH (10:00)
[2018-02-13 13:11] VITALS: BP 117/84
--- NOTE | 2018-02-13 18:16 | PDOC DISCHARGE SUMMARY ---
General - Admit/Disc Date/PCP Admission Date/Primary Care Provider: 02/10/18 16:16 Discharge Date: 02/13/18 - Discharge Diagnosis (1) DKA (diabetic ketoacidoses) Is this a current diagnosis for this admission?: Yes (2) Tobacco abuse Is this a current diagnosis for this admission?: Yes (3) Constipation Is this a current diagnosis for this admission?: Yes (4) Anxiety Is this a current diagnosis for this admission?: Yes (5) Dehydration Is this a current diagnosis for this admission?: Yes - Additional Information Resuscitation Status: Full Code Discharge Diet: Diabetic Discharge Activity: Activity As Tolerated Prescriptions: Insulin Glargine,Hum.rec.anlog [Lantus Insulin 100 Unit/mL] 15 unit SUBCUT DAILY #1 insuln.pen Insulin Lispro [Humalog Insulin (Lispro) 100 unit/mL] 2 unit SUBCUT AC #1 unit Lisinopril 5 mg PO DAILY #30 tablet Quetiapine Fumarate [Seroquel 25 mg Tablet] 25 mg PO QHS #30 tablet Venlafaxine HCl ER [Effexor Xr 37.5 mg Cap.sr] 37.5 mg PO DAILY #30 cap.sr.24h Home Medications: Insulin Glargine,Hum.rec.anlog [Lantus Insulin 100 Unit/mL] 15 unit SUBCUT DAILY #1 insuln.pen 02/13/18 Insulin Lispro [Humalog Insulin (Lispro) 100 unit/mL] 2 unit SUBCUT AC #1 unit 02/13/18 Lisinopril 5 mg PO DAILY #30 tablet 02/13/18 Quetiapine Fumarate [Seroquel 25 mg Tablet] 25 mg PO QHS #30 tablet 02/13/18 Venlafaxine HCl ER [Effexor Xr 37.5 mg Cap.sr] 37.5 mg PO DAILY #30 cap.sr.24h 02/13/18 History of Present Illness History of Present Illness: PENNY PERSON is a 37 year old female presented to ED accompanied by significant other and complained of stomach pain, nausea and vomiting which had been getting progressively worse since mid- January. She came to ED because her skin was itchy, dry and was having cramps of her hands. She was prescribed prednisone. Symptoms got worse. Claimed losing around 20 pounds since mid January. Complained of being thirsty and urinating a lot. When evaluated in ED patient was found with hyperglycemia and acidosis. She was started on insulin IV and administered IV fluids. Hospitalist service was consulted and prompted to admit for further management. Hospital Course Hospital Course: Patient was primarily managed through IV fluids and adjustment of Lantus, pre- meal Humalog and sliding scale. Unfortunately she was not started on insulin drip while she was in emergency room but she did well despite since was not severely acidotic. Hemoglobin A1c was 11.8. Patient was seen by early childhood educator aide and patient was provided with extensive information about her medical condition. Major issue at this point in time is the lack of insurance. Arrangements were made for [facility] He was discharged on Lantus and Humalog. Patient has been strongly educated about quitting smoking. Since this is a completely new and unexpected diagnosis patient is extremely anxious and we addressed this issue by placing patient on Effexor and Seroquel. Patient also was prescribed lisinopril primarily for renal protection. Patient had a have been advised that if having problems with diabetes management and had concerns she could always return back to emergency room. At the time of discharge patient stated that she felt comfortable as far as administering insulin. Since improved prompted to discharge under stable condition. Physical Exam Vital Signs: Temp Pulse Resp BP Pulse Ox 97.9 F 67 16 108/72 100 02/13/18 03:44 02/13/18 03:44 02/13/18 03:44 02/13/18 03:44 02/13/18 03:44 Intake & Output 02/11/18 02/12/18 02/13/18 06:59 06:59 06:59 Intake Total 2350 4279 2485 Output Total 542 342 6464 Balance 1650 3579 -15 Weight 66 kg 70 kg 70.3 kg General appearance: PRESENT: cooperative, thin Head exam: PRESENT: atraumatic, normocephalic Eye exam: PRESENT: conjunctiva pink, EOMI, PERRLA Ear exam: PRESENT: normal external ear exam Neck exam: PRESENT: full ROM. ABSENT: JVD, lymphadenopathy, tenderness Respiratory exam: PRESENT: clear to auscultation donald Cardiovascular exam: PRESENT: RRR. ABSENT: diastolic murmur, systolic murmur Vascular exam: PRESENT: normal capillary refill GI/Abdominal exam: PRESENT: normal bowel sounds, soft. ABSENT: tenderness Extremities exam: PRESENT: full ROM. ABSENT: pedal edema Musculoskeletal exam: PRESENT: ambulatory Neurological exam: PRESENT: alert, awake, oriented to person, oriented to place , oriented to time, oriented to situation, CN II-XII grossly intact Psychiatric exam: PRESENT: appropriate affect, normal mood Skin exam: PRESENT: intact, normal color Results Laboratory Results: 02/13/18 04:43 02/13/18 04:43 02/13/18 02/13/18 04:43 04:43 WBC 5.1 RBC 3.11 L Hgb 10.2 L Hct 28.9 L MCV 93 MCH 32.8 MCHC 35.3 RDW 12.7 Plt Count 151 Seg Neutrophils % Not Reportable Lymphocytes % Not Reportable Monocytes % Not Reportable Eosinophils % Not Reportable Basophils % Not Reportable Absolute Neutrophils Not Reportable Absolute Lymphocytes Not Reportable Absolute Monocytes Not Reportable Absolute Eosinophils Not Reportable Absolute Basophils Not Reportable Sodium 142.8 Potassium 3.9 Chloride 114 H Carbon Dioxide 22 Anion Gap 7 BUN 4 L Creatinine 0.58 Est GFR ( Amer) > 60 Est GFR (Non-Af Amer) > 60 Glucose 139 H Calcium 8.3 L Magnesium 1.8 Impressions: Chest X-Ray 02/10/18 15:03 IMPRESSION: NO ACUTE RADIOGRAPHIC FINDING IN THE CHEST. Qualifiers - * PATEINT BEING DISCHARGED WITH ANY OF THE FOLLOWING DIAGNOSIS?: No Plan Discharge Plan: Discharge home. Patient is to [facility]up at the care [facility]. Time Spent: Less than 30 Minutes
== END 2018-02-13 13:15 | disposition home or self-care (01) | DRG 639 ==
LOC: ER 12:47 → EH 16:16 → 3W 18:28
PROVIDERS: ADMIT Family Medicine; ATTEND Family Medicine
DX: E10.10 Type 1 diabetes mellitus with ketoacidosis without coma (principal); K59.00 Constipation, unspecified; F41.9 Anxiety disorder, unspecified; E86.0 Dehydration; R63.4 Abnormal weight loss; Z68.25 Body mass index [BMI] 25.0-25.9, adult; J45.909 Unspecified asthma, uncomplicated; F17.210 Nicotine dependence, cigarettes, uncomplicated; Z88.0 Allergy status to penicillin; Z91.040 Latex allergy status; Z79.4 Long term (current) use of insulin; Z79.899 Other long term (current) drug therapy
CPT/HCPCS: 36415; 71046; 80048; 80053; 81001; 81025; 82803; 82962; 83036; 83690; 83735; 84443; 85025; 93005; 93010; 99285; J1644; J1815; J3480; J3490; J7030; J7120; S0119

== ENCOUNTER 2018-02-19 15:57 | Emergency (ER) | payer SELFPAY ==
[2018-02-19] MEDS ORDERED: NORMAL SALINE 1000 ML 1,000 ML IV ONE (16:23)
--- NOTE | 2018-02-19 16:24 | ER Document Report ---
ED Medical Screen (RME) - General Chief Complaint: Headache Stated Complaint: HEAD PAIN Time Seen by Provider: 02/19/18 16:19 Notes: Patient presented to the emergency room approximately 10 days ago with new onset of diabetes and ketoacidosis. She was admitted to the hospital at that time. She states since he has been discharged she is been able to get her Lantus insulin but not her Humalog. She states her sugars are still running in the 400s. He states she still feels weak and has malaise and headaches. She states that she is having trouble getting her medications. TRAVEL OUTSIDE OF THE [place] IN LAST 30 DAYS: No - Related Data Allergies/Adverse Reactions: latex Allergy (Verified 02/10/18 22:54) Penicillins Allergy (Verified 02/10/18 22:54) Past Medical History - Social History Chew tobacco use (# tins/day): No Frequency of alcohol use: Occasional Drug Abuse: None Pulmonary Medical History: Reports: Hx Asthma Endocrine Medical History: Reports: Hx Diabetes Mellitus Type 1. Denies: Hx Diabetes Mellitus Type 2 Renal/ Medical History: Denies: Hx Peritoneal Dialysis Psychiatric Medical History: Reports: Hx Depression - Immunizations History of Influenza Vaccine for 08/2017 - 01/2018 Season: No Physical Exam - Vital signs Vitals: Temp Pulse Resp BP Pulse Ox 98.8 F 91 16 100/64 97 02/19/18 16:02 02/19/18 16:02 02/19/18 16:02 02/19/18 16:02 02/19/18 16:02 Course - Vital Signs Vital signs: Temp Pulse Resp BP Pulse Ox 98.8 F 91 16 100/64 97 02/19/18 16:02 02/19/18 16:02 02/19/18 16:02 02/19/18 16:02 02/19/18 16:02
[2018-02-19 16:55] LABS: ABSOLUTE EOSINOPHILS # (AUTO) 0.2 10^3/uL (0.0-0.6); ABSOLUTE LYMPHOCYTES (AUTO) 2.3 10^3/uL (0.5-4.7); ABSOLUTE MONOCYTES (AUTO) 0.3 10^3/uL (0.1-1.4); ABSOLUTE NEUT (AUTO) 4.8 10^3/uL (1.7-8.2); BASOPHILS % (AUTO) 0.2 % (0-2); EOSINOPHILS % (AUTO) 2.8 % (0-6); HEMOGLOBIN 13.7 g/dL (12.0-15.5); LYMPHOCYTES % (AUTO) 30.4 % (13-45); MEAN CORPUSCULAR HEMOGLOBIN 32.6 pg (27.0-33.4); MEAN CORPUSCULAR HGB CONC 34.3 g/dL (32.0-36.0); MEAN CORPUSCULAR VOLUME 95 fl (80-97); MONOCYTES % (AUTO) 3.7 % (3-13); PLATELET COUNT 370 10^3/uL (150-450); RED CELL DISTRIBUTION WIDTH 13.4 % (11.5-14.0); SEGMENTED NEUTROPHILS % (AUTO) 62.9 % (42-78); TOTAL CELLS COUNTED % (AUTO) 100 %; WHITE BLOOD COUNT 7.6 10^3/uL (4.0-10.5)
[2018-02-19 17:10] LABS: APPEARANCE,URINE CLEAR; BILIRUBIN,URINE NEGATIVE (NEGATIVE); COLOR,URINE YELLOW; GLUCOSE, URINE >=500 mg/dL (NEGATIVE); KETONES,URINE TRACE mg/dL (NEGATIVE); LEUKOCYTE ESTERASE,URINE NEGATIVE (NEGATIVE); NITRITE,URINE NEGATIVE (NEGATIVE); PROTEIN,URINE NEGATIVE (NEGATIVE); URINE SPECIFIC GRAVITY 1.026; UROBILINOGEN,URINE NEGATIVE mg/dL (<2.0)
[2018-02-19 17:25] LABS: ALANINE AMINOTRANSFERASE 79 U/L (9-52); ALBUMIN 4.2 g/dL (3.5-5.0); ALKALINE PHOSPHATASE 139 U/L (38-126); ANION GAP 9 (5-19); ASPARTATE AMINO TRANSFERASE 73 U/L (14-36); BILIRUBIN,DIRECT 0.2 mg/dL (0.0-0.4); BILIRUBIN,TOTAL 0.2 mg/dL (0.2-1.3); BLOOD UREA NITROGEN 9 mg/dL (7-20); CALCIUM 9.5 mg/dL (8.4-10.2); CARBON DIOXIDE 29 mmol/L (22-30); CHLORIDE 102 mmol/L (98-107); GLUCOSE 298 mg/dL (75-110); SODIUM 139.5 mmol/L (137-145); TOTAL PROTEIN 6.8 g/dL (6.3-8.2)
--- NOTE | 2018-02-19 18:49 | ER Document Report ---
ED Headache - General Chief Complaint: Headache Stated Complaint: HEAD PAIN Time Seen by Provider: 02/19/18 16:19 Mode of Arrival: Ambulatory Information source: Patient TRAVEL OUTSIDE OF THE [place] IN LAST 30 DAYS: No - HPI Patient complains to provider of: Headache Onset: Other - 2-3 days Onset was: Gradual Timing: Still present Quality of pain: Achy, Dull Severity: Mild Pain Level: 2 Associated symptoms: Double/blurred vision, Nausea/vomiting Similar symptoms previously: No Recently seen / treated by doctor: Yes Notes: Patient is a 37-year-old female who was recently diagnosed with diabetes and admitted to this facility for DKA, presenting to the emergency department today complaining of headache 2-3 days with blurred vision at times, not feeling well , reports some nausea earlier this morning but none, she reports taking ibuprofen at home with minimal relief of symptoms, she has been unable to fill her prescription for NovoLog due to finances but has been using the Lantus that she was discharged home with - Related Data Allergies/Adverse Reactions: latex Allergy (Verified 02/10/18 22:54) Penicillins Allergy (Verified 02/10/18 22:54) Past Medical History - General Information source: Patient - Social History Smoking Status: Current Every Day Smoker Chew tobacco use (# tins/day): No Frequency of alcohol use: Occasional Drug Abuse: None Family History: Reviewed & Not Pertinent Patient has suicidal ideation: No Patient has homicidal ideation: No Pulmonary Medical History: Reports: Hx Asthma Endocrine Medical History: Reports: Hx Diabetes Mellitus Type 1. Denies: Hx Diabetes Mellitus Type 2 Renal/ Medical History: Denies: Hx Peritoneal Dialysis Psychiatric Medical History: Reports: Hx Depression Review of Systems - Review of Systems Constitutional: No symptoms reported EENT: Double vision Cardiovascular: No symptoms reported Respiratory: No symptoms reported Gastrointestinal: Nausea Genitourinary: No symptoms reported Female Genitourinary: No symptoms reported Musculoskeletal: No symptoms reported Skin: No symptoms reported Hematologic/Lymphatic: No symptoms reported Neurological/Psychological: Headaches -: Yes All other systems reviewed and negative Physical Exam - Vital signs Vitals: Temp Pulse Resp BP Pulse Ox 98.8 F 91 16 100/64 97 02/19/18 16:02 02/19/18 16:02 02/19/18 16:02 02/19/18 16:02 02/19/18 16:02 Interpretation: Normal - General General appearance: Appears well, Alert - HEENT Head: Normocephalic, Atraumatic Eyes: Normal Pupils: PERRL - Respiratory Respiratory status: No respiratory distress Chest status: Nontender Breath sounds: Normal Chest palpation: Normal - Cardiovascular Rhythm: Regular Heart sounds: Normal auscultation Murmur: No - Abdominal Inspection: Normal Distension: No distension Bowel sounds: Normal Tenderness: Nontender Organomegaly: No organomegaly - Back Back: Normal, Nontender - Extremities General upper extremity: Normal inspection, Nontender, Normal color, Normal ROM , Normal temperature General lower extremity: Normal inspection, Nontender, Normal color, Normal ROM , Normal temperature, Normal weight bearing. No: Kennedi's sign - Neurological Neuro grossly intact: Yes Cognition: Normal Orientation: AAOx4 [place] Coma Scale Eye Opening: Spontaneous [place] Coma Scale Verbal: Oriented [place] Coma Scale Motor: Obeys Commands Merlene Coma Scale Total: 15 Speech: Normal Motor strength normal: LUE, RUE, LLE, RLE Sensory: Normal - Psychological Associated symptoms: Normal affect, Normal mood - Skin Skin Temperature: Warm Skin Moisture: Dry Skin Color: Normal Course - Re-evaluation Re-evalutation: 02/19/18 20:35 Patient resting comfortably, reports feeling much better, labs were discussed at bedside which are remarkable for mild transaminitis and elevated glucose, she is a recently diagnosed diabetic and was unable to her prescription for NovoLog secondary to finances, alternative options will be explored, patient will be discharged with instructions for follow-up and advised to return if any worsening or additional concerns, patient acknowledges understanding and agreement with this - Vital Signs Vital signs: Temp Pulse Resp BP Pulse Ox 98.8 F 91 16 100/64 97 02/19/18 16:02 02/19/18 16:02 02/19/18 16:02 02/19/18 16:02 02/19/18 16:02 - Laboratory Result Diagrams: 02/19/18 16:45 02/19/18 16:45 Laboratory results interpreted by me: 02/19/18 02/19/18 16:45 16:45 Glucose 298 H AST 73 H ALT 79 H Alkaline Phosphatase 139 H Urine Glucose (UA) >=500 H Urine Ketones TRACE H Discharge - Discharge Clinical Impression: Headache Qualifiers: Headache type: unspecified Headache chronicity pattern: acute headache Intractability: not intractable Qualified Code(s): R51 - Headache Condition: Stable Disposition: HOME, SELF-CARE Instructions: Diabetes ([facility]), Headache ([facility]), Hyperglycemia ([facility]) Additional Instructions: Follow up with your primary care provider in one to 2 days. Return to the emergency room immediately if symptoms worsen or any additional concerns. Prescriptions: Hum Insulin NPH/Reg Insulin Hm [Insulin Inj 70-30 (100 Unit/1 ml) 3 ml Vial] 2 unit SUBCUT AC #1 vial Syrge-Ndl,Ins 0.3 ml Half Ronal [Insulin Syringe] 1 each AC #90 disp.syrin
[2018-02-19] MEDS ORDERED: KETOROLAC TROMETHAMINE INJ/PF 30 MG/1 ML SDV IV ONE (19:40)
[2018-02-19] MEDS ORDERED: ONDANSETRON HCL INJ/PF 4 MG/2 ML SDV IV ONE (19:40)
[2018-02-19 21:37] VITALS: BP 104/62
== END 2018-02-19 21:37 | disposition home or self-care (01) ==
LOC: ER 15:57
DX: R51 Headache (principal); H53.8 Other visual disturbances; R11.2 Nausea with vomiting, unspecified; E11.9 Type 2 diabetes mellitus without complications; Z79.4 Long term (current) use of insulin; F17.200 Nicotine dependence, unspecified, uncomplicated
CPT/HCPCS: 99284; 96361; 96374; 96375; 36415; 85025; 81025; 80053; 81001; J1885; J2405; J7030